=== PATIENT | female | born 1980 | race Caucasian/White ===

== ENCOUNTER 2021-11-01 14:17 | Inpatient (IN) ==
[2021-11-01] MEDS ORDERED: *HR* Heparin 5,000 UNIT/ML VIAL ONE (14:31)
[2021-11-01 14:46] LABS: Basophils % 0.7 %
[2021-11-01 14:48] LABS: Eosinophils # 0.1 K/mcL (0.0-0.6); Eosinophils % 1.5 %; Hematocrit 42.9 % (35.3-44.9); Hemoglobin 12.4 g/dL (11.5-15.4); Immature Granulocytes % 4.3 % (0-4); Lymphocytes % 66.8 %; Mean Corpuscular HGB Conc 28.9 g/dL (31.6-35.5); Mean Corpuscular Hemoglobin 28.9 pg (28.0-33.3); Monocytes # 0.2 K/mcL (0.0-1.3); Monocytes % 3.8 %; Neutrophils # 1.4 K/mcL (1.6-8.9); Platelet Count 288 K/mcL (140-400); Red Blood Count 4.29 M/mcL (3.82-4.97); Red Cell Distribution Width 14.6 % (11.5-14.5); Segmented Neutrophils % 22.9 %; White Blood Count 6.1 K/mcL (4.3-11.1)
[2021-11-01 14:50] LABS: Lymphocytes # 4.1 K/mcL (0.6-4.6)
[2021-11-01] MEDS ORDERED: 0.9 % Sodium Chloride 250 ML ONE (14:50)
[2021-11-01 14:53] LABS: Anisocytosis 1+ (Not Present); Hypochromasia Present (Not Present); Platelet Estimate Normal (Normal)
[2021-11-01 14:54] LABS: INR 1.1; Prothrombin Time 12.1 Seconds (9.4-12.1)
[2021-11-01] MEDS ORDERED: *HR* EPINEPHrine 1 MG/10 ML SYRINGE IVP ONE (14:54)
[2021-11-01] MEDS ORDERED: Norepinephrine 4 MG/254 ML in 0.9% Sodium Chloride IVC ONE (14:54)
[2021-11-01] MEDS ORDERED: *HR* Norepinephrine 4 MG/4 ML VIAL IVC ONE (14:54)
[2021-11-01] MEDS ORDERED: *HR* Magnesium Sulfate 2 GM/50 ML PIGGYBACK IVPB ONE (14:54)
[2021-11-01] MEDS: Norepinephrine 4 MG/254 ML IV.SOLN IVC SCH ×2 (14:54→20:36)
[2021-11-01 14:56] LABS: VBG HCO3 15 mEq/L (21-27); VBG PCO2 122 mmHg (41-51); VBG PO2 69 mmHg (25-50)
[2021-11-01 14:57] LABS: Activated Partial Thrombo Time 38.8 Seconds (26.0-36.0)
[2021-11-01] MEDS ORDERED: EPINEPHrine 1 MG in D5% in Water 250 ML IVC SCH (15:00)
[2021-11-01] MEDS ORDERED: Sod Bicarb 150mEq/D5W 150 MEQ/1,000 ML IV.SOLN IVC ONE (15:00)
[2021-11-01 15:08] LABS: ABG Base Excess -20 mEq/L (-2 to 3); ABG HCO3 16 mEq/L (21-27); ABG Oxygen Saturation 90 % (95-98); ABG PCO2 97 mmHg (35-45); ABG PH 6.82 pH Units (7.32-7.45); ABG PO2 109 mmHg (85-104); ABG TCO2 19 mEq/L (20-26); Blood Gas Modality ASSIST CONTROL; Blood Gas VT 550 cc
[2021-11-01 15:15] LABS: Troponin I 0.04 ng/mL (< 0.04)
[2021-11-01] MEDS ORDERED: *HR* FentaNYL (PF) 1,000 MCG/20 ML VIAL ONE (15:18)
[2021-11-01] MEDS ORDERED: Isovue-370 500 ML BOTTLE IVP ONE (15:20)
[2021-11-01] MEDS: FentaNYL (PF) 1,000 MCG/100 ML IV.SOLN IVC SCH ×2 (15:22→21:39)
[2021-11-01 15:43] LABS: Calcium 11.7 mg/dL (8.6-10.3); Potassium 3.9 mEq/L (3.5-5.1)
[2021-11-01] MEDS ORDERED: *HR* Midazolam HCl 5 MG/5 ML VIAL IVP ONE ×2 (15:44→16:00)
[2021-11-01] MEDS ORDERED: Vancomycin 1,750 MG/517.5 ML IV.SOLN IVPB ONE (15:46)
[2021-11-01 15:52] LABS: ABG Base Excess -3 mEq/L (-2 to 3); ABG HCO3 26 mEq/L (21-27); ABG Oxygen Saturation 100 % (95-98); ABG PCO2 64 mmHg (35-45); ABG PH 7.22 pH Units (7.32-7.45); ABG PO2 383 mmHg (85-104); ABG TCO2 28 mEq/L (20-26); Blood Gas Modality ASSIST CONTROL; Blood Gas VT 550 cc
[2021-11-01] MEDS ORDERED: Cefepime HCl 2,000 MG in 0.9 % Sodium Chloride Mini Bag 100 ML IVPB ONE (16:00)
[2021-11-01] MEDS ORDERED: Perflutren Lipid Microsphere 1.3 ML in 0.9 % Sodium Chloride 8.7 ML IVP PRN ×2 (16:02→16:06)
[2021-11-01] MEDS ORDERED: Artificial Tears SOLN 15 ML BOTTLE BOTH EYES PRN (17:55)
[2021-11-01] MEDS ORDERED: Naloxone 0.4 MG/ML INJ IVP PRN (17:55)
[2021-11-01] MEDS ORDERED: Pantoprazole 40 MG VIAL IVP SCH (18:15)
[2021-11-01] MEDS: Midazolam HCl 50 MG/100 ML IV.SOLN IVC SCH (19:50)
[2021-11-01 20:29] LABS: ABG Base Excess -2 mEq/L (-2 to 3); ABG HCO3 21 mEq/L (21-27); ABG Oxygen Saturation 100 % (95-98); ABG PCO2 29 mmHg (35-45); ABG PH 7.46 pH Units (7.32-7.45); ABG PO2 346 mmHg (85-104); ABG TCO2 21 mEq/L (20-26); Blood Gas VT 440 cc
[2021-11-01] MEDS: Cisatracurium 200 MG in 0.9 % Sodium Chloride 180 ML IVC SCH (20:34)
[2021-11-01 22:33] LABS: Basophils % 0.1 %; Hematocrit 41.5 % (35.3-44.9); Hemoglobin 13.3 g/dL (11.5-15.4); Immature Granulocytes % 0.6 % (0-4); Lymphocytes % 4.3 %; Mean Corpuscular Hemoglobin 28.2 pg (28.0-33.3); Mean Platelet Volume 10.2 fL (9.4-12.4); Monocytes # 0.7 K/mcL (0.0-1.3); Monocytes % 3.1 %; Platelet Count 317 K/mcL (140-400); Red Blood Count 4.72 M/mcL (3.82-4.97); Red Cell Distribution Width 14.5 % (11.5-14.5); Segmented Neutrophils % 91.9 %
[2021-11-01 22:35] LABS: Mean Corpuscular Volume 87.9 fL (83.0-100.0); Neutrophils # 21.8 K/mcL (1.6-8.9); White Blood Count 23.7 K/mcL (4.3-11.1)
[2021-11-01 22:46] LABS: INR 1.1; Prothrombin Time 11.9 Seconds (9.4-12.1)
[2021-11-01 22:48] LABS: VBG Ionized Calcium 1.08 mmol/L (1.15-1.35)
[2021-11-01 22:48] LABS: Activated Partial Thrombo Time 32.1 Seconds (26.0-36.0)
[2021-11-01 22:52] LABS: Albumin 2.9 g/dL (3.5-5.7); Albumin/Globulin Ratio 1.2 (1.1-2.2); Bilirubin,Total 0.5 mg/dL (0.3-1.0); Calcium 8.3 mg/dL (8.6-10.3); Globulin 2.5 g/dL (2.4-3.5); Magnesium 2.4 mg/dL (1.6-2.6); Phosphorous 1.6 mg/dL (2.7-4.5); Potassium 3.2 mEq/L (3.5-5.1); Total Protein 5.4 g/dL (6.4-8.9)
[2021-11-01 22:55] LABS: Troponin I 0.52 ng/mL (< 0.04)
[2021-11-01] MEDS ORDERED: Ringers Solution, Lactated 1,000 ML IVC ONE (22:58)
[2021-11-01] MEDS: Chlorhexidine Rinse 15 ML MOUTHWASH MM SCH (23:33)
[2021-11-01] MEDS: Artificial Tears SOLN 15 ML BOTTLE BOTH EYES SCH ×2 (23:33→23:45)
[2021-11-01] MEDS: Pantoprazole 40 MG VIAL IVP SCH (23:33)
[2021-11-02 00:33] LABS: Platelet Estimate Normal (Normal)
[2021-11-02] MEDS: FentaNYL (PF) 1,000 MCG/100 ML IV.SOLN IVC SCH ×5 (02:34→23:12)
[2021-11-02] MEDS: Ringers Solution, Lactated 1,000 ML IVC SCH ×2 (04:08→17:06)
[2021-11-02 04:09] LABS: ABG Base Excess -2 mEq/L (-2 to 3); ABG HCO3 17 mEq/L (21-27); ABG Oxygen Saturation 93 % (95-98); ABG PCO2 17 mmHg (35-45); ABG PH 7.61 pH Units (7.32-7.45); ABG PO2 53 mmHg (85-104); ABG TCO2 18 mEq/L (20-26); Blood Gas VT 440 cc
[2021-11-02] MEDS: Artificial Tears SOLN 15 ML BOTTLE BOTH EYES SCH ×5 (04:09→20:34)
[2021-11-02 04:58] LABS: VBG Ionized Calcium 1.04 mmol/L (1.15-1.35)
[2021-11-02 05:00] LABS: Basophils % 0.1 %; Eosinophils % 0.1 %; Hematocrit 35.4 % (35.3-44.9); Immature Granulocytes % 0.5 % (0-4); Lymphocytes # 1.2 K/mcL (0.6-4.6); Lymphocytes % 8.1 %; Mean Corpuscular HGB Conc 32.8 g/dL (31.6-35.5); Mean Corpuscular Hemoglobin 28.4 pg (28.0-33.3); Mean Corpuscular Volume 86.8 fL (83.0-100.0); Mean Platelet Volume 10.3 fL (9.4-12.4); Monocytes # 0.4 K/mcL (0.0-1.3); Monocytes % 2.8 %; Neutrophils # 12.8 K/mcL (1.6-8.9); Platelet Count 250 K/mcL (140-400); Red Blood Count 4.08 M/mcL (3.82-4.97); Red Cell Distribution Width 14.3 % (11.5-14.5); Segmented Neutrophils % 88.4 %; White Blood Count 14.5 K/mcL (4.3-11.1)
[2021-11-02 05:03] LABS: Hemoglobin 11.6 g/dL (11.5-15.4)
[2021-11-02 05:17] LABS: Albumin 2.6 g/dL (3.5-5.7); Albumin/Globulin Ratio 1.2 (1.1-2.2); Bilirubin,Total 0.5 mg/dL (0.3-1.0); Globulin 2.1 g/dL (2.4-3.5); Magnesium 2.1 mg/dL (1.6-2.6); Phosphorous 1.5 mg/dL (2.7-4.5); Potassium 2.8 mEq/L (3.5-5.1); Total Protein 4.7 g/dL (6.4-8.9)
[2021-11-02] MEDS: Cisatracurium 200 MG in 0.9 % Sodium Chloride 180 ML IVC SCH ×2 (05:54→16:27)
[2021-11-02] MEDS: Chlorhexidine Rinse 15 ML MOUTHWASH MM SCH ×2 (08:13→20:40)
[2021-11-02] MEDS: Pantoprazole 40 MG VIAL IVP SCH (08:13)
[2021-11-02] MEDS: Norepinephrine 4 MG/254 ML IV.SOLN IVC SCH ×3 (08:13→18:09)
[2021-11-02 08:30] LABS: VBG Ionized Calcium 1.05 mmol/L (1.15-1.35)
[2021-11-02 08:43] LABS: Calcium 7.9 mg/dL (8.6-10.3); Magnesium 2.1 mg/dL (1.6-2.6); Phosphorous 2.1 mg/dL (2.7-4.5); Potassium 3.4 mEq/L (3.5-5.1)
[2021-11-02] MEDS ORDERED: Potassium Chloride 40 MEQ/200 ML BAG IVPB PRN (09:30)
[2021-11-02 09:58] LABS: ABG Base Excess -2 mEq/L (-2 to 3); ABG HCO3 20 mEq/L (21-27); ABG Oxygen Saturation 93 % (95-98); ABG PCO2 26 mmHg (35-45); ABG PO2 58 mmHg (85-104); ABG TCO2 21 mEq/L (20-26); Blood Gas VT 440 cc
[2021-11-02] MEDS: Calcium Gluconate 1gm/50mL 1 GM/50 ML BAG IVPB PRN (10:02)
[2021-11-02] MEDS: Potassium Phosphate 44 MEQ in 0.9 % Sodium Chloride 250 ML IVPB PRN (10:02)
[2021-11-02] MEDS ORDERED: *HR* Enoxaparin 40 MG/0.4 ML SYRINGE SQ ONE (11:04)
[2021-11-02 12:23] LABS: VBG Ionized Calcium 1.05 mmol/L (1.15-1.35)
[2021-11-02 12:39] LABS: Calcium 7.9 mg/dL (8.6-10.3); Magnesium 2.2 mg/dL (1.6-2.6); Phosphorous 4.5 mg/dL (2.7-4.5); Potassium 3.5 mEq/L (3.5-5.1)
[2021-11-02 16:21] LABS: VBG Ionized Calcium 1.02 mmol/L (1.15-1.35)
[2021-11-02 16:36] LABS: Calcium 7.8 mg/dL (8.6-10.3); Magnesium 2.1 mg/dL (1.6-2.6); Phosphorous 6.6 mg/dL (2.7-4.5); Potassium 3.6 mEq/L (3.5-5.1)
[2021-11-02 16:39] LABS: ABG Base Excess -4 mEq/L (-2 to 3); ABG HCO3 19 mEq/L (21-27); ABG Oxygen Saturation 94 % (95-98); ABG PCO2 27 mmHg (35-45); ABG PH 7.46 pH Units (7.32-7.45); ABG PO2 66 mmHg (85-104); ABG TCO2 20 mEq/L (20-26); Blood Gas VT 440 cc
[2021-11-02 20:41] LABS: VBG Ionized Calcium 1.03 mmol/L (1.15-1.35)
[2021-11-02 20:58] LABS: Calcium 7.5 mg/dL (8.6-10.3); Magnesium 2.1 mg/dL (1.6-2.6); Potassium 3.7 mEq/L (3.5-5.1)
[2021-11-02] MEDS: Calcium Gluconate 1gm/50mL 1 GM/50 ML BAG IVPB SCH (22:57)
[2021-11-02] MEDS: Midazolam HCl 50 MG/100 ML IV.SOLN IVC SCH (23:12)
[2021-11-02] MEDS ORDERED: Phenytoin 1,000 MG, 0.22 MICRON FILTER SET 1 EACH in 0.9 % Sodium Chloride 50 ML IVPB ONE (23:24)
[2021-11-03] MEDS: Artificial Tears SOLN 15 ML BOTTLE BOTH EYES SCH ×6 (00:37→22:07)
[2021-11-03] MEDS: Calcium Gluconate 1gm/50mL 1 GM/50 ML BAG IVPB SCH (01:22)
[2021-11-03 01:53] LABS: VBG Ionized Calcium 1.01 mmol/L (1.15-1.35)
[2021-11-03 02:13] LABS: Calcium 7.4 mg/dL (8.6-10.3); Magnesium 2.1 mg/dL (1.6-2.6); Phosphorous 8.2 mg/dL (2.7-4.5); Potassium 3.7 mEq/L (3.5-5.1)
[2021-11-03 04:44] LABS: ABG Base Excess -4 mEq/L (-2 to 3); ABG HCO3 22 mEq/L (21-27); ABG Oxygen Saturation 96 % (95-98); ABG PCO2 41 mmHg (35-45); ABG PH 7.34 pH Units (7.32-7.45); ABG PO2 87 mmHg (85-104); ABG TCO2 23 mEq/L (20-26); Blood Gas VT 400 cc
[2021-11-03 05:22] LABS: Basophils % 0.1 %; Eosinophils % 0.1 %; Hemoglobin 10.2 g/dL (11.5-15.4); Immature Granulocytes % 0.5 % (0-4); Lymphocytes # 1.3 K/mcL (0.6-4.6); Lymphocytes % 8.7 %; Mean Corpuscular HGB Conc 30.9 g/dL (31.6-35.5); Mean Corpuscular Hemoglobin 28.3 pg (28.0-33.3); Mean Corpuscular Volume 91.4 fL (83.0-100.0); Mean Platelet Volume 10.6 fL (9.4-12.4); Monocytes # 0.5 K/mcL (0.0-1.3); Monocytes % 3.4 %; Neutrophils # 12.9 K/mcL (1.6-8.9); Platelet Count 239 K/mcL (140-400); Red Blood Count 3.61 M/mcL (3.82-4.97); Red Cell Distribution Width 15.9 % (11.5-14.5); Segmented Neutrophils % 87.2 %; White Blood Count 14.8 K/mcL (4.3-11.1)
[2021-11-03 05:27] LABS: VBG Ionized Calcium 1.05 mmol/L (1.15-1.35)
[2021-11-03 05:43] LABS: Magnesium 2.2 mg/dL (1.6-2.6); Phosphorous 8.3 mg/dL (2.7-4.5); Potassium 3.7 mEq/L (3.5-5.1)
[2021-11-03] MEDS: *HR* Enoxaparin 40 MG/0.4 ML SYRINGE SQ SCH (05:55)
[2021-11-03] MEDS: FentaNYL (PF) 1,000 MCG/100 ML IV.SOLN IVC SCH ×2 (05:56→10:17)
[2021-11-03] MEDS: Midazolam HCl 50 MG/100 ML IV.SOLN IVC SCH (08:38)
[2021-11-03] MEDS: levETIRAcetam 1,000 MG in 0.9 % Sodium Chloride 100 ML IVPB SCH ×2 (08:39→21:50)
[2021-11-03] MEDS: Chlorhexidine Rinse 15 ML MOUTHWASH MM SCH ×2 (08:39→22:07)
[2021-11-03] MEDS: carvediloL 6.25 MG TABLET PO SCH ×2 (08:40→15:56)
[2021-11-03] MEDS: Pantoprazole 40 MG VIAL IVP SCH (08:40)
[2021-11-03] MEDS: Phenytoin Oral Susp 100 MG/4 ML UDC GTUBE SCH ×2 (09:34→15:34)
[2021-11-03 09:35] LABS: VBG Ionized Calcium 1.04 mmol/L (1.15-1.35)
[2021-11-03 10:05] LABS: Calcium 7.9 mg/dL (8.6-10.3); Magnesium 2.2 mg/dL (1.6-2.6); Phosphorous 7.9 mg/dL (2.7-4.5); Potassium 3.7 mEq/L (3.5-5.1)
[2021-11-03] MEDS: Calcium Gluconate 1gm/50mL 1 GM/50 ML BAG IVPB PRN (10:17)
[2021-11-03 12:40] LABS: Calcium 7.8 mg/dL (8.6-10.3); Magnesium 2.2 mg/dL (1.6-2.6); Phosphorous 7.6 mg/dL (2.7-4.5); Potassium 3.8 mEq/L (3.5-5.1)
[2021-11-03] MEDS: Norepinephrine 4 MG/254 ML IV.SOLN IVC SCH (13:40)
[2021-11-04] MEDS: Artificial Tears SOLN 15 ML BOTTLE BOTH EYES SCH ×6 (00:51→20:15)
[2021-11-04] MEDS: Phenytoin Oral Susp 100 MG/4 ML UDC GTUBE SCH ×3 (01:05→16:24)
[2021-11-04] MEDS ORDERED: *HR* Metoprolol 5 MG/5 ML VIAL IVP ONE (02:40)
[2021-11-04 03:50] LABS: ABG Base Excess -1 mEq/L (-2 to 3); ABG HCO3 24 mEq/L (21-27); ABG Oxygen Saturation 98 % (95-98); ABG PCO2 41 mmHg (35-45); ABG PH 7.38 pH Units (7.32-7.45); ABG PO2 111 mmHg (85-104); ABG TCO2 26 mEq/L (20-26); Blood Gas VT 400 cc
[2021-11-04 03:53] LABS: Basophils % 0.3 %; Eosinophils # 0.3 K/mcL (0.0-0.6); Eosinophils % 2.8 %; Hematocrit 30.1 % (35.3-44.9); Hemoglobin 9.1 g/dL (11.5-15.4); Immature Granulocytes % 0.2 % (0-4); Lymphocytes # 0.8 K/mcL (0.6-4.6); Lymphocytes % 9.2 %; Mean Corpuscular HGB Conc 30.2 g/dL (31.6-35.5); Mean Corpuscular Volume 92.6 fL (83.0-100.0); Mean Platelet Volume 10.7 fL (9.4-12.4); Monocytes # 0.4 K/mcL (0.0-1.3); Monocytes % 4.7 %; Neutrophils # 7.4 K/mcL (1.6-8.9); Platelet Count 209 K/mcL (140-400); Red Blood Count 3.25 M/mcL (3.82-4.97); Red Cell Distribution Width 15.9 % (11.5-14.5); Segmented Neutrophils % 82.8 %
[2021-11-04 03:59] LABS: VBG Ionized Calcium 1.11 mmol/L (1.15-1.35)
[2021-11-04 04:01] LABS: INR 1.1; Prothrombin Time 12.3 Seconds (9.4-12.1)
[2021-11-04 04:04] LABS: Activated Partial Thrombo Time 32.9 Seconds (26.0-36.0)
[2021-11-04 04:15] LABS: Albumin 2.6 g/dL (3.5-5.7); Bilirubin,Total 0.3 mg/dL (0.3-1.0); Calcium 7.7 mg/dL (8.6-10.3); Globulin 2.5 g/dL (2.4-3.5); Magnesium 2.3 mg/dL (1.6-2.6); Phosphorous 5.5 mg/dL (2.7-4.5); Total Protein 5.1 g/dL (6.4-8.9)
[2021-11-04] MEDS: Norepinephrine 4 MG/254 ML IV.SOLN IVC SCH ×4 (06:18→11:49)
[2021-11-04] MEDS: *HR* Enoxaparin 40 MG/0.4 ML SYRINGE SQ SCH (06:20)
[2021-11-04] MEDS: carvediloL 6.25 MG TABLET PO SCH ×2 (07:42→16:24)
[2021-11-04] MEDS: Chlorhexidine Rinse 15 ML MOUTHWASH MM SCH ×2 (08:04→20:15)
[2021-11-04] MEDS: Pantoprazole 40 MG VIAL IVP SCH (08:04)
[2021-11-04] MEDS ORDERED: carvediloL 6.25 MG TABLET GTUBE ONE (09:14)
[2021-11-04] MEDS: levETIRAcetam 1,000 MG in 0.9 % Sodium Chloride 100 ML IVPB SCH ×2 (09:53→21:10)
[2021-11-04] MEDS ORDERED: Albuterol 2.5 MG/3 ML NEBULIZER IH PRN (11:21)
[2021-11-04] MEDS: lisinopriL 10 MG TABLET PO SCH (11:50)
[2021-11-04] MEDS: Midazolam HCl 50 MG/100 ML IV.SOLN IVC SCH (21:04)
[2021-11-05] MEDS: Phenytoin Oral Susp 100 MG/4 ML UDC GTUBE SCH ×4 (00:04→23:13)
[2021-11-05] MEDS: Artificial Tears SOLN 15 ML BOTTLE BOTH EYES SCH ×7 (00:04→23:13)
[2021-11-05] MEDS: Levalbuterol Neb 1.25 MG/3 ML IH SCH ×4 (03:45→21:41)
[2021-11-05 04:07] LABS: Basophils % 0.3 %; Eosinophils # 0.1 K/mcL (0.0-0.6); Eosinophils % 0.9 %; Hematocrit 34.2 % (35.3-44.9); Immature Granulocytes % 0.5 % (0-4); Lymphocytes # 0.8 K/mcL (0.6-4.6); Lymphocytes % 8.4 %; Mean Corpuscular HGB Conc 31.6 g/dL (31.6-35.5); Mean Corpuscular Hemoglobin 28.5 pg (28.0-33.3); Mean Corpuscular Volume 90.2 fL (83.0-100.0); Mean Platelet Volume 10.1 fL (9.4-12.4); Monocytes # 0.4 K/mcL (0.0-1.3); Monocytes % 4.5 %; Neutrophils # 7.9 K/mcL (1.6-8.9); Platelet Count 246 K/mcL (140-400); Red Blood Count 3.79 M/mcL (3.82-4.97); Red Cell Distribution Width 15.7 % (11.5-14.5); Segmented Neutrophils % 85.4 %; White Blood Count 9.3 K/mcL (4.3-11.1)
[2021-11-05 04:08] LABS: Hemoglobin 10.8 g/dL (11.5-15.4)
[2021-11-05 04:21] LABS: VBG Ionized Calcium 1.11 mmol/L (1.15-1.35)
[2021-11-05 04:33] LABS: Albumin 2.9 g/dL (3.5-5.7); Bilirubin,Total 0.4 mg/dL (0.3-1.0); Calcium 8.3 mg/dL (8.6-10.3); Phosphorous 3.4 mg/dL (2.7-4.5); Potassium 4.1 mEq/L (3.5-5.1); Total Protein 5.9 g/dL (6.4-8.9)
[2021-11-05 04:41] LABS: ABG Base Excess 0 mEq/L (-2 to 3); ABG HCO3 23 mEq/L (21-27); ABG Oxygen Saturation 96 % (95-98); ABG PCO2 34 mmHg (35-45); ABG PH 7.45 pH Units (7.32-7.45); ABG PO2 78 mmHg (85-104); ABG TCO2 24 mEq/L (20-26); Blood Gas VT 400 cc
[2021-11-05] MEDS: *HR* Enoxaparin 40 MG/0.4 ML SYRINGE SQ SCH (05:30)
[2021-11-05] MEDS: Pantoprazole 40 MG VIAL IVP SCH (08:47)
[2021-11-05] MEDS: carvediloL 6.25 MG TABLET PO SCH (08:48)
[2021-11-05] MEDS: Chlorhexidine Rinse 15 ML MOUTHWASH MM SCH ×2 (08:48→19:54)
[2021-11-05] MEDS: levETIRAcetam 1,000 MG in 0.9 % Sodium Chloride 100 ML IVPB SCH ×2 (08:48→19:54)
[2021-11-05] MEDS: lisinopriL 10 MG TABLET PO SCH (08:48)
[2021-11-05] MEDS ORDERED: carvediloL 6.25 MG TABLET PO SCH (17:00)
[2021-11-05] MEDS: Midazolam HCl 50 MG/100 ML IV.SOLN IVC SCH (19:06)
[2021-11-05] MEDS ORDERED: *HR* Metoprolol 5 MG/5 ML VIAL IVP ONE (23:37)
[2021-11-06] MEDS ORDERED: Morphine Sulfate 2 MG/ML SYRINGE IVP ONE (02:18)
[2021-11-06] MEDS: niCARdipine 20 MG/200 ML MLS IVC SCH ×3 (03:03→20:09)
[2021-11-06] MEDS: Levalbuterol Neb 1.25 MG/3 ML IH SCH ×4 (04:00→20:28)
[2021-11-06 04:07] LABS: Basophils % 0.4 %; Eosinophils % 0.4 %; Hematocrit 37.6 % (35.3-44.9); Hemoglobin 11.6 g/dL (11.5-15.4); Immature Granulocytes % 0.6 % (0-4); Lymphocytes % 9.4 %; Mean Corpuscular HGB Conc 30.9 g/dL (31.6-35.5); Mean Corpuscular Volume 90.6 fL (83.0-100.0); Mean Platelet Volume 10.1 fL (9.4-12.4); Monocytes # 0.8 K/mcL (0.0-1.3); Monocytes % 7.3 %; Neutrophils # 8.9 K/mcL (1.6-8.9); Platelet Count 342 K/mcL (140-400); Red Blood Count 4.15 M/mcL (3.82-4.97); Red Cell Distribution Width 16.1 % (11.5-14.5); Segmented Neutrophils % 81.9 %; White Blood Count 10.9 K/mcL (4.3-11.1)
[2021-11-06 04:07] LABS: VBG Ionized Calcium 1.12 mmol/L (1.15-1.35)
[2021-11-06] MEDS: Artificial Tears SOLN 15 ML BOTTLE BOTH EYES SCH ×6 (04:22→23:20)
[2021-11-06 04:27] LABS: Albumin 3.2 g/dL (3.5-5.7); Bilirubin,Total 0.4 mg/dL (0.3-1.0); Calcium 9.2 mg/dL (8.6-10.3); Globulin 3.2 g/dL (2.4-3.5); Magnesium 2.1 mg/dL (1.6-2.6); Phosphorous 3.3 mg/dL (2.7-4.5); Potassium 4.1 mEq/L (3.5-5.1); Total Protein 6.4 g/dL (6.4-8.9)
[2021-11-06] MEDS: *HR* Enoxaparin 40 MG/0.4 ML SYRINGE SQ SCH (05:50)
[2021-11-06] MEDS: Phenytoin Oral Susp 100 MG/4 ML UDC GTUBE SCH ×3 (07:31→23:23)
[2021-11-06] MEDS: Pantoprazole 40 MG VIAL IVP SCH (07:31)
[2021-11-06] MEDS: Chlorhexidine Rinse 15 ML MOUTHWASH MM SCH ×2 (07:31→20:12)
[2021-11-06] MEDS: carvediloL 25 MG TABLET PO SCH ×2 (08:02→17:51)
[2021-11-06] MEDS ORDERED: lisinopriL 20 MG TABLET PO SCH (09:00)
[2021-11-06] MEDS: levETIRAcetam 1,000 MG in 0.9 % Sodium Chloride 100 ML IVPB SCH ×2 (10:07→20:12)
[2021-11-06] MEDS ORDERED: Gadolinium Contrast Agent (WT Based) IV PRN (11:22)
[2021-11-06] MEDS: Insulin LISPRO 300 UNITS/3 ML VIAL SUBQ SCH ×4 (11:49→23:20)
[2021-11-06] MEDS ORDERED: GADOBUTROL 30 MMOL/30 ML VIAL IVP ONE (15:58)
[2021-11-07] MEDS: niCARdipine 20 MG/200 ML MLS IVC SCH ×3 (03:14→17:49)
[2021-11-07 03:35] LABS: Basophils % 0.3 %; Eosinophils # 0.1 K/mcL (0.0-0.6); Eosinophils % 0.8 %; Hemoglobin 10.5 g/dL (11.5-15.4); Immature Granulocytes % 0.5 % (0-4); Lymphocytes # 1.3 K/mcL (0.6-4.6); Lymphocytes % 13.8 %; Mean Corpuscular HGB Conc 30.9 g/dL (31.6-35.5); Mean Corpuscular Hemoglobin 28.1 pg (28.0-33.3); Mean Corpuscular Volume 90.9 fL (83.0-100.0); Mean Platelet Volume 9.9 fL (9.4-12.4); Monocytes # 0.8 K/mcL (0.0-1.3); Neutrophils # 7.2 K/mcL (1.6-8.9); Platelet Count 317 K/mcL (140-400); Red Blood Count 3.74 M/mcL (3.82-4.97); Red Cell Distribution Width 15.7 % (11.5-14.5); Segmented Neutrophils % 76.6 %; White Blood Count 9.5 K/mcL (4.3-11.1)
[2021-11-07 03:36] LABS: VBG Ionized Calcium 1.18 mmol/L (1.15-1.35)
[2021-11-07] MEDS: Artificial Tears SOLN 15 ML BOTTLE BOTH EYES SCH ×6 (03:42→23:54)
[2021-11-07] MEDS: Insulin LISPRO 300 UNITS/3 ML VIAL SUBQ SCH ×5 (03:43→20:22)
[2021-11-07 03:54] LABS: Albumin 2.9 g/dL (3.5-5.7); Bilirubin,Total 0.3 mg/dL (0.3-1.0); Calcium 8.9 mg/dL (8.6-10.3); Phosphorous 3.7 mg/dL (2.7-4.5); Potassium 4.2 mEq/L (3.5-5.1); Total Protein 5.9 g/dL (6.4-8.9)
[2021-11-07] MEDS: Levalbuterol Neb 1.25 MG/3 ML IH SCH ×4 (04:12→20:16)
[2021-11-07 04:52] LABS: ABG Base Excess 0 mEq/L (-2 to 3); ABG HCO3 24 mEq/L (21-27); ABG Oxygen Saturation 98 % (95-98); ABG PCO2 34 mmHg (35-45); ABG PH 7.46 pH Units (7.32-7.45); ABG PO2 98 mmHg (85-104); ABG TCO2 25 mEq/L (20-26); Blood Gas Modality ASSIST CONTROL; Blood Gas VT 400 cc
[2021-11-07] MEDS: *HR* Enoxaparin 40 MG/0.4 ML SYRINGE SQ SCH (05:22)
[2021-11-07] MEDS: carvediloL 25 MG TABLET PO SCH (07:30)
[2021-11-07] MEDS: Chlorhexidine Rinse 15 ML MOUTHWASH MM SCH ×2 (07:30→20:22)
[2021-11-07] MEDS: Phenytoin Oral Susp 100 MG/4 ML UDC GTUBE SCH ×3 (07:30→23:54)
[2021-11-07] MEDS: Pantoprazole 40 MG VIAL IVP SCH (07:30)
[2021-11-07] MEDS: levETIRAcetam 1,000 MG in 0.9 % Sodium Chloride 100 ML IVPB SCH ×2 (07:44→20:22)
[2021-11-07] MEDS ORDERED: Scopolamine Patch 1.5 MG PATCH.TD72 TD SCH (09:30)
[2021-11-07] MEDS: Albumin Human 5% 12.5 GM/250 ML IV.SOLN IVC SCH ×4 (09:37→20:17)
[2021-11-07] MEDS: *HR* LORazepam 2 MG/ML VIAL IVP PRN ×2 (09:55→17:38)
[2021-11-07] MEDS ORDERED: carvediloL 25 MG TABLET PO SCH (17:00)
[2021-11-07] MEDS: Dexmedetomidine HCl 400 MCG/100 ML MLS IVC SCH (17:45)
[2021-11-08] MEDS: Insulin LISPRO 300 UNITS/3 ML VIAL SUBQ SCH ×7 (00:11→23:27)
[2021-11-08] MEDS: Levalbuterol Neb 1.25 MG/3 ML IH SCH ×4 (03:40→19:43)
[2021-11-08] MEDS: Artificial Tears SOLN 15 ML BOTTLE BOTH EYES SCH ×6 (04:00→23:26)
[2021-11-08 04:07] LABS: ABG Base Excess 2 mEq/L (-2 to 3); ABG HCO3 28 mEq/L (21-27); ABG Oxygen Saturation 100 % (95-98); ABG PCO2 47 mmHg (35-45); ABG PH 7.38 pH Units (7.32-7.45); ABG PO2 197 mmHg (85-104); ABG TCO2 29 mEq/L (20-26); Blood Gas VT 370 cc
[2021-11-08 04:45] LABS: Basophils % 0.4 %; Eosinophils # 0.1 K/mcL (0.0-0.6); Eosinophils % 0.9 %; Hematocrit 29.7 % (35.3-44.9); Immature Granulocytes % 0.9 % (0-4); Lymphocytes # 1.2 K/mcL (0.6-4.6); Lymphocytes % 13.6 %; Mean Corpuscular HGB Conc 29.6 g/dL (31.6-35.5); Mean Corpuscular Hemoglobin 27.8 pg (28.0-33.3); Mean Platelet Volume 10.1 fL (9.4-12.4); Monocytes % 11.4 %; Neutrophils # 6.6 K/mcL (1.6-8.9); Platelet Count 280 K/mcL (140-400); Red Blood Count 3.16 M/mcL (3.82-4.97); Red Cell Distribution Width 15.6 % (11.5-14.5); Segmented Neutrophils % 72.8 %
[2021-11-08 04:47] LABS: Hemoglobin 8.8 g/dL (11.5-15.4)
[2021-11-08 04:52] LABS: VBG Ionized Calcium 1.19 mmol/L (1.15-1.35)
[2021-11-08 05:06] LABS: Albumin 3.4 g/dL (3.5-5.7); Albumin/Globulin Ratio 1.3 (1.1-2.2); Bilirubin,Total 0.4 mg/dL (0.3-1.0); Calcium 8.8 mg/dL (8.6-10.3); Globulin 2.6 g/dL (2.4-3.5); Phosphorous 3.3 mg/dL (2.7-4.5); Potassium 4.4 mEq/L (3.5-5.1)
[2021-11-08] MEDS: niCARdipine 20 MG/200 ML MLS IVC SCH ×3 (05:38→17:53)
[2021-11-08] MEDS: Norepinephrine 4 MG/254 ML IV.SOLN IVC SCH ×3 (05:38→23:12)
[2021-11-08] MEDS: Dexmedetomidine HCl 400 MCG/100 ML MLS IVC SCH ×2 (05:39→14:25)
[2021-11-08] MEDS: *HR* Enoxaparin 40 MG/0.4 ML SYRINGE SQ SCH (05:43)
[2021-11-08] MEDS ORDERED: Atropine Sulfate 1% 40 DROP/2 ML BOTTLE SL PRN (06:39)
[2021-11-08] MEDS: Phenytoin Oral Susp 100 MG/4 ML UDC GTUBE SCH ×3 (08:03→23:11)
[2021-11-08] MEDS: Chlorhexidine Rinse 15 ML MOUTHWASH MM SCH ×2 (08:03→19:49)
[2021-11-08] MEDS: levETIRAcetam 1,000 MG in 0.9 % Sodium Chloride 100 ML IVPB SCH ×2 (08:04→20:03)
[2021-11-08] MEDS: Pantoprazole 40 MG VIAL IVP SCH (08:04)
[2021-11-08] MEDS: Cefepime HCl 2,000 MG in 0.9 % Sodium Chloride Mini Bag 100 ML IVPB SCH ×2 (08:14→19:49)
[2021-11-08 11:31] LABS: Bacteria,Urine Few per hpf (None-Few); Bilirubin,Urine Negative (Negative); Blood,Urine Trace (Negative); Clarity,Urine Turbid (Clear); Color,Urine Light-Yellow (Yellow); Glucose,Urine (UA) Normal (Normal); Ketones,Urine Negative (Negative); Leukocyte Esterase,Urine Negative (Negative); Mucus,Urine Few per lpf (None-Few); Nitrite,Urine Negative (Negative); Protein,Urine 50 mg/dL (Neg-Trace); RBC,Urine 0-3 per hpf (0-3); Specific Gravity,Urine 1.018 (1.010-1.025); Squamous Epithelial Cell,Urine Few per hpf (None-Few); Transitional Epi Cells,Urine Few per hpf (None-Few); Urobilinogen,Urine Normal (Normal)
[2021-11-09] MEDS: *HR* LORazepam 2 MG/ML VIAL IVP PRN ×7 (00:28→18:47)
[2021-11-09] MEDS: Dexmedetomidine HCl 400 MCG/100 ML MLS IVC SCH ×4 (03:09→14:00)
[2021-11-09] MEDS: niCARdipine 20 MG/200 ML MLS IVC SCH ×2 (03:12→12:45)
[2021-11-09] MEDS: Artificial Tears SOLN 15 ML BOTTLE BOTH EYES SCH ×4 (03:31→14:25)
[2021-11-09] MEDS: Insulin LISPRO 300 UNITS/3 ML VIAL SUBQ SCH ×4 (03:31→14:25)
[2021-11-09] MEDS: Levalbuterol Neb 1.25 MG/3 ML IH SCH ×3 (03:38→15:14)
[2021-11-09 03:54] LABS: Basophils # 0.1 K/mcL (0.0-0.2); Basophils % 0.5 %; Eosinophils # 0.1 K/mcL (0.0-0.6); Eosinophils % 1.2 %; Hematocrit 32.1 % (35.3-44.9); Hemoglobin 9.4 g/dL (11.5-15.4); Immature Granulocytes % 1.6 % (0-4); Lymphocytes # 1.8 K/mcL (0.6-4.6); Lymphocytes % 16.3 %; Mean Corpuscular HGB Conc 29.3 g/dL (31.6-35.5); Mean Corpuscular Hemoglobin 28.1 pg (28.0-33.3); Mean Corpuscular Volume 95.8 fL (83.0-100.0); Monocytes # 1.3 K/mcL (0.0-1.3); Monocytes % 11.2 %; Neutrophils # 7.8 K/mcL (1.6-8.9); Platelet Count 309 K/mcL (140-400); Red Blood Count 3.35 M/mcL (3.82-4.97); Red Cell Distribution Width 15.6 % (11.5-14.5); Segmented Neutrophils % 69.2 %; White Blood Count 11.3 K/mcL (4.3-11.1)
[2021-11-09 04:02] LABS: VBG Ionized Calcium 1.21 mmol/L (1.15-1.35)
[2021-11-09 04:18] LABS: ABG Base Excess 2 mEq/L (-2 to 3); ABG HCO3 26 mEq/L (21-27); ABG Oxygen Saturation 97 % (95-98); ABG PCO2 36 mmHg (35-45); ABG PH 7.46 pH Units (7.32-7.45); ABG PO2 88 mmHg (85-104); ABG TCO2 27 mEq/L (20-26); Blood Gas VT 370 cc
[2021-11-09 04:55] LABS: Albumin 3.3 g/dL (3.5-5.7); Albumin/Globulin Ratio 1.1 (1.1-2.2); Bilirubin,Total 0.6 mg/dL (0.3-1.0); Calcium 8.5 mg/dL (8.6-10.3); Magnesium 1.7 mg/dL (1.6-2.6); Phosphorous 1.6 mg/dL (2.7-4.5); Potassium 4.2 mEq/L (3.5-5.1); Total Protein 6.3 g/dL (6.4-8.9)
[2021-11-09] MEDS: *HR* Enoxaparin 40 MG/0.4 ML SYRINGE SQ SCH (06:15)
[2021-11-09] MEDS: Potassium Phosphate 44 MEQ in 0.9 % Sodium Chloride 250 ML IVPB PRN (06:16)
[2021-11-09] MEDS: Phenytoin Oral Susp 100 MG/4 ML UDC GTUBE SCH ×2 (07:32→14:25)
[2021-11-09] MEDS: Chlorhexidine Rinse 15 ML MOUTHWASH MM SCH (07:32)
[2021-11-09] MEDS: Pantoprazole 40 MG VIAL IVP SCH (07:32)
[2021-11-09] MEDS: Cefepime HCl 2,000 MG in 0.9 % Sodium Chloride Mini Bag 100 ML IVPB SCH (07:32)
[2021-11-09] MEDS: levETIRAcetam 1,000 MG in 0.9 % Sodium Chloride 100 ML IVPB SCH (07:48)
[2021-11-09] MEDS ORDERED: Glycopyrrolate 0.2 MG/ML VIAL IVP ONE (15:49)
[2021-11-09] MEDS: Morphine Sulfate 2 MG/ML SYRINGE IVP PRN ×5 (15:52→18:24)
[2021-11-09] MEDS: *HR* FentaNYL (PF) 100 MCG/2 ML VIAL IVP PRN ×4 (16:14→18:47)
== END 2021-11-09 21:30 | disposition expired | DRG 190 ==
LOC: EMEROOARM 14:17 → ICNU 18:14
PROVIDERS: ADMIT Family Medicine; ATTEND Family Medicine